=== PATIENT | female | born 1955 | race African-American/Black ===

== ENCOUNTER → 2019-08-19 | Outpatient (CLI) | LOC: RDC 14:08 | PROVIDERS: ATTEND Nurse Practitioner Family | DX: Z53.9 Procedure and treatment not carried out, unspecified reason (principal) | CPT/HCPCS: 87635; C9803 ==

== ENCOUNTER 2020-02-07 11:19 | Day surgery (SDC) | payer OTHER ==
[~2020-02-07 11:19] MED LIST: BUPIVACAINE HCL 0.75% INJ/PF (7.5 MG/1 ML) 10 ML SDV OD PRN; CHONDR SU A NA/HYALUR INTRAOC KIT (SURGICARE) ONE; EPINEPHRINE INJ/PF 1 MG/1 ML AMPULE ONE; KETOROLAC TROMETHAMINE 0.45% 4 DROP/0.4 ML DROPERETTE OD PRN; LIDOCAINE 1%/PHENYLEPHRINE 1.5% 1 ML VIAL ONE; LIDOCAINE 4% INJ/PF (40 MG/ML) 5 ML AMPUL OD PRN; TRYPAN BLUE 0.06 % OPH SOLN 0.5 ML DISP.SYRIN ONE
[2020-02-07] MEDS ORDERED: ONDANSETRON HCL INJ/PF 4 MG/2 ML SDV ONE (11:33)
[2020-02-07] MEDS ORDERED: MIDAZOLAM 2 MG/2 ML INJ ONE (11:33)
[2020-02-07] MEDS ORDERED: FENTANYL CITRATE INJ/PF 100 MCG/2 ML AMPUL ONE (11:33)
[2020-02-07] MEDS: TETRACAINE HCL 0.5% OPH SOLN 4 ML OD PRN ×3 (12:15→13:09)
[2020-02-07] MEDS: TROPICAMIDE 1% OPH SOLN 15 ML OD PRN ×3 (12:15→12:27)
[2020-02-07] MEDS: BESIFLOXACIN HCL 0.6% OPH SUSP 5 ML BOTTLE OD PRN ×4 (12:15→13:36)
[2020-02-07] MEDS: CYCLOPENTOLATE 0.2%/PHENYLEPHRINE 1% OPH SOLN 2 ML OD PRN ×3 (12:15→12:27)
[2020-02-07] MEDS: DORZOLAMIDE HCL 2%/TIMOLOL MALEAT 0.5% OPH SOLN 10 ML OD PRN ×2 (13:36)
[2020-02-07] MEDS: PREDNISOLONE ACETATE 1% OPH SUSP 5 ML OD PRN ×2 (13:36)
--- NOTE | 2020-02-07 13:43 | Operative Report ---
Operative Report-[facility] Operative Report: DATE OF SURGERY: 02/07/2020 PREOPERATIVE DIAGNOSIS: MATURE CATARACT, RIGHT EYE. POSTOPERATIVE DIAGNOSIS: MATURE CATARACT, RIGHT EYE. PROCEDURE PERFORMED: COMPLEX CATARACT EXTRACTION WITH INTRAOCULAR LENSES, RIGHT EYE Intraocular Lens Model: SN 60 WF 21.5 Total Phaco Time: 4.98 CDE SURGEON: LINDA SOLIZ MD ANESTHESIA: TOPICAL WITH MAC PLUS LIDOCAINE INDICATIONS FOR SURGERY: Difficulty reading small print Indications for complex: Mature cataract with poor red reflex requiring the use of dye PROCEDURE: The patient was brought to the operating room and placed on operative table. Following Tetracaine drops, topical anesthesia was administered. This consisted of instrument wipe pledgets soaked in a solution of 4% Xylocaine mixed with 0.75% of Marcaine in a 1:2 ratio. A 2 x 1 cm pledget was placed in the superior fornix. A 1 x 1 cm pledget was placed in inferior fornix. The eye was patched out for 5 minutes. The patch was removed. The eye was sterilely prepped and draped in the usual manner. Lid speculum was placed in the eye. The pledgets were removed. 4-0 black silk sutures were placed around the superior and inferior rectus muscle to be used as traction. A conjunctival peritomy was performed at the 10 o'clock position. Hemostasis was obtained with bipolar cautery. A posterior limbal groove was created using a crescent knife and dissected anteriorly towards the cornea. A sharp point blade was used to create a paracentesis site at the 2 o'clock position. 0.2 cc of 1% non-preserved lidocaine with phenylephrine was injected into the eye. Following the side-port incision, a syringe with air was injected into the eye, exchanging aqueous with air. Trypan blue dye was injected inferior to the air bubble. A 2.0 mm keratome was used to enter the anterior chamber through the groove. Viscoelastic was injected into the anterior chamber. An anterior capsulotomy was performed using Utrata forceps in the capsulorrhexis fashion. Hydrodissection and hydrodelineation were performed. Phacoemulsification was performed in the divide and conquer technique. Following this, the I/A unit was used to remove residual cortex. Viscoelastic was injected into the capsular bag. The intraocular lens was placed in the capsular bag. The I/A unit was used to remove residual viscoelastic. The wound was seen to be watertight under high and low pressure, and no sutures were placed. The intraocular lens was well centered. The pressure was adjusted in the eye to normal pressure. The 4-0 black silk sutures and lid speculum were removed. The eye was shielded after Besivance, prednsolone, and Cosopt drops were placed. The patient tolerated the procedure well and was sent to recovery room in good condition.
== END 2020-02-07 14:23 | disposition home or self-care (01) ==
LOC: SC 11:19
PROVIDERS: ATTEND Ophthalmology
DX: H25.89 Other age-related cataract (principal); H57.03 Miosis; H40.1131 Primary open-angle glaucoma, bilateral, mild stage; I10 Essential (primary) hypertension
CPT/HCPCS: 66982; V2632; J2250; J3490 ×5; J0171; J3010; J2405; 142

== ENCOUNTER 2020-02-28 09:49 | Day surgery (SDC) | payer OTHER ==
[~2020-02-28 09:49] MED LIST changes: -BUPIVACAINE HCL 0.75% INJ/PF (7.5 MG/1 ML) 10 ML SDV OD PRN; +BUPIVACAINE HCL 0.75% INJ/PF (7.5 MG/1 ML) 10 ML SDV OS PRN; -CHONDR SU A NA/HYALUR INTRAOC KIT (SURGICARE) ONE; -EPINEPHRINE INJ/PF 1 MG/1 ML AMPULE ONE; -KETOROLAC TROMETHAMINE 0.45% 4 DROP/0.4 ML DROPERETTE OD PRN; +KETOROLAC TROMETHAMINE 0.45% 4 DROP/0.4 ML DROPERETTE OS PRN; +LIDOCAINE 1% INJ-PF (10 MG/ML) 30 ML SDV ONE; -LIDOCAINE 1%/PHENYLEPHRINE 1.5% 1 ML VIAL ONE; -LIDOCAINE 4% INJ/PF (40 MG/ML) 5 ML AMPUL OD PRN; +LIDOCAINE 4% INJ/PF (40 MG/ML) 5 ML AMPUL OS PRN
[2020-02-28] MEDS: TETRACAINE HCL 0.5% OPH SOLN 4 ML OS PRN ×3 (10:56→11:36)
[2020-02-28] MEDS: BESIFLOXACIN HCL 0.6% OPH SUSP 5 ML BOTTLE OS PRN ×5 (10:56→12:13)
[2020-02-28] MEDS: TROPICAMIDE 1% OPH SOLN 15 ML OS PRN ×3 (10:56→11:21)
[2020-02-28] MEDS: CYCLOPENTOLATE 0.2%/PHENYLEPHRINE 1% OPH SOLN 2 ML OS PRN ×3 (10:56→11:21)
[2020-02-28] MEDS ORDERED: MIDAZOLAM 2 MG/2 ML INJ ONE (11:16)
[2020-02-28] MEDS: CHONDR SU A NA/HYALUR INTRAOC KIT (SURGICARE) ONE ×2 (11:51→11:53)
[2020-02-28] MEDS: EPINEPHRINE INJ/PF 1 MG/1 ML AMPULE ONE ×2 (11:51→11:53)
[2020-02-28] MEDS: LIDOCAINE 1%/PHENYLEPHRINE 1.5% 1 ML VIAL ONE ×2 (11:51→11:53)
[2020-02-28] MEDS: PREDNISOLONE ACETATE 1% OPH SUSP 5 ML OS PRN ×3 (12:12→12:13)
[2020-02-28] MEDS: DORZOLAMIDE HCL 2%/TIMOLOL MALEAT 0.5% OPH SOLN 10 ML OS PRN ×3 (12:12→12:13)
--- NOTE | 2020-02-28 12:44 | Operative Report ---
Operative Report-[facility] Operative Report: DATE OF SURGERY: February 28, 2020 PREOPERATIVE DIAGNOSIS: Cortical CATARACT, LEFT EYE. POSTOPERATIVE DIAGNOSIS: Cortical CATARACT, LEFT EYE. PROCEDURE PERFORMED: COMPLEX CATARACT EXTRACTION WITH INTRAOCULAR LENS, LEFT EYE Intraocular Lens Model: SN 60 WF 21.5 Total Phaco Time: 3.57 CDE SURGEON: LINDA SOLIZ MD ANESTHESIA: TOPICAL WITH MAC PLUS LIDOCAINE INDICATIONS FOR SURGERY: Difficulty reading small print Indications for complex: Dense cortical cataract with poor red reflex requiring the use of dye PROCEDURE: The patient was brought to the operating room and placed on operative table. Following Tetracaine drops, topical anesthesia was administered. This consisted of instrument wipe pledgets soaked in a solution of 4% Xylocaine mixed with 0.75% of Marcaine in a 1:2 ratio. A 2 x 1 cm pledget was placed in the superior fornix. A 1 x 1 cm pledget was placed in inferior fornix. The eye was patched out for 5 minutes. The patch was removed. The eye was sterilely prepped and draped in the usual manner. Lid speculum was placed in the eye. The pledgets were removed. 4-0 black silk sutures were placed around the superior and inferior rectus muscle to be used as traction. A conjunctival peritomy was performed at the 10 o'clock position. Hemostasis was obtained with bipolar cautery. A posterior limbal groove was created using a crescent knife and dissected anteriorly towards the cornea. A sharp point blade was used to create a paracentesis site at the 2 o'clock position. Following the side-port incision, a syringe with air was injected into the eye, exchanging aqueous with air. Trypan blue dye was injected inferior to the air bubble. A 2.0 mm keratome was used to enter the anterior chamber through the groove. Viscoelastic was injected into the anterior chamber. An anterior capsulotomy was performed using Utrata forceps in the capsulorrhexis fashion. Hydrodissection and hydrodelineation were performed. Phacoemulsification was performed in the divide and conquer technique. Following this, the I/A unit was used to remove residual cortex. Viscoelastic was injected into the capsular bag. The intraocular lens was placed in the capsular bag. The I/A unit was used to remove residual viscoelastic. The wound was seen to be watertight under high and low pressure, and no sutures were placed. The intraocular lens was well centered. The pressure was adjusted in the eye to normal pressure. The 4-0 black silk sutures and lid speculum were removed. The eye was shielded after Besivance, prednsolone, and Cosopt drops were placed. The patient tolerated the procedure well and was sent to recovery room in good condition.
== END 2020-02-28 12:46 | disposition home or self-care (01) ==
LOC: SC 09:49
PROVIDERS: ATTEND Ophthalmology
DX: H25.89 Other age-related cataract (principal); Z96.1 Presence of intraocular lens; I10 Essential (primary) hypertension
CPT/HCPCS: 66982; V2632; J2250; J3490 ×6; J0171